=== PATIENT | female | born 1940 | race Caucasian/White ===

== ENCOUNTER → 2017-11-22 | Outpatient (CLI) | payer MEDICARE, OTHER ==
--- NOTE | 2017-11-22 10:51 | RADIOLOGY IMAGING REPORT ---
FACILITY: [facility] PATIENT NAME: Whitney Martinez : 1940 MR: [id number] V: [id number] EXAM DATE: ORDERING PHYSICIAN: RIANA ROCK TECHNOLOGIST: Location: [facility] Patient: Whitney Martinez : 1940 Visit/Account:[id number] Date of Sevice: 11/22/2017 DEXA Scan Clinical history: Postmenopausal. Comparison: DEXA scan from 10/24/2012. LUMBAR SPINE: The bone mineral density (BMD) measured from L1-L4 correlates with a Z-score of 1.7 and a T-score of -0.2 which is Normal as defined by the World Health Organization. The corresponding risk of fracture in the lumbar spine is Not increased compared with a young adult reference population. This value h as decrease by 5.6 % since the prior study. More than 5% change is considered significant. HIP: Bone mineral density (BMD) measured in the LEFT total hip region correlates with a Z-score 1.9 and a T-score of zero which is normal as defined by the World Health Organization. The corresponding risk of fracture in the hip is Not i ncreased compared to a young adult reference population. This value has decrease by 6.6 % since the p rior study. More than 5% change is considered significant. T score left femoral neck -0.6 Bone mineral density (BMD) measured in the Femoral Neck region measures 0.956 g/cm?. IMPRESSION: 1. Lumbar spine: Normal. There has been 5.6% decrease in the bone mineral density since the previou s exam. 2. Left Total Hip: Normal. There has been 6.6% decrease in the bone mineral density since the previ ous exam. 3. Femoral Neck: Bone Mineral Density is 0.956 g/cm? The next DEXA scan of this patient should include the following sites: L1-L4 and the left hip. FRAX? WHO Fracture Risk Assessment Tool link: <http://www.shef.ac.uk/FRAX/tool.jsp?locationValue=9> PLEASE NOTE: 1) The World Health Organization defines low BMD as follows: T-score Normal > -1 Osteopenia < -1 and > -2.5 Osteoporosis < -2.5 without fractures Established osteoporosis < -2.5 with fractures 2) In general, you may wish to consider: Diagnosis Treatment Follow-up DEXA Normal BMD Prevention 2-3 years Osteopenia Prevention/therapy 1-2 years Osteoporosis Therapy Yearly 3) Fracture risk estimated from the T-score is more accurate for vertebral fractures (often spontane ous) than for hip fractures. Report Dictated By: Alana Ramirez MD at 11/22/2017 10:44 AM Report E-Signed By: Alana Ramirez MD at 11/22/2017 10:46 AM WSN:[id number]
--- NOTE | 2017-11-23 08:48 | RADIOLOGY IMAGING REPORT ---
[place] [facility] [place] JONNY HUTSON : [id number] MR: [id number] V: [id number] EXAM DATE: ORDERING PHYSICIAN: RIANA ROCK TECHNOLOGIST: Tisha Hall PROCEDURE:BILATERAL DIGITAL SCREENING MAMMOGRAM WITH CAD ASSISTED INTERPRETATION COMPARISON:Prior mammograms 12/19/14, 10/24/12. INDICATIONS:SCREENING FINDINGS: Small to moderate amount of fibroglandular tissue is seen throughout the breasts. The parenchymal pattern has remained stable allowing for difference in mammographic technique & patient positioning. There is no evidence of malignant appearing mass, malignant appearing calcifications or other secondary sign of malignancy in either breast. DIAGNOSTIC CATEGORY 1--NEGATIVE. RECOMMENDATIONS: ROUTINE MAMMOGRAM AND CLINICAL EVALUATION. IMPRESSION: BIRADS 1: Negative. No significant abnormality is seen. Dictated by: Alana Ramirez M.D. on 11/22/2017 at 17:05 Transcribed by: LANE on 11/23/2017 at 7:51 Approved by: Alana Ramirez M.D. on 11/23/2017 at 8:47 [facility]
== END ==
LOC: MAMO 01:57
PROVIDERS: ATTEND Internal Medicine
DX: Z12.31 Encounter for screening mammogram for malignant neoplasm of breast (principal); Z00.00 Encounter for general adult medical examination without abnormal findings; Z80.3 Family history of malignant neoplasm of breast
CPT/HCPCS: 77063; 77067; 77080

== ENCOUNTER 2018-05-03 06:22 | Emergency (ER) | payer MEDICARE, OTHER ==
[2018-05-03] MEDS ORDERED: ASPIRIN 81 MG CHEW PO ONE (06:30)
--- NOTE | 2018-05-03 06:33 | EKG ---
FACILITY: [facility] PATIENT NAME: JONNY HUTSON : [id number] MR: [id number] V: [id number] EXAM DATE: ORDERING PHYSICIAN: ZAINAB LINDA TECHNOLOGIST: TAMIE Test Reason : CP Blood Pressure : / mmHG Vent. Rate : 093 BPM Atrial Rate : 093 BPM P-R Int : 138 ms QRS Dur : 088 ms QT Int : 360 ms P-R-T Axes : 063 061 062 degrees QTc Int : 447 ms Normal sinus rhythm Anterior infarct , age undetermined T inversion consistent with ant ischemia vs normal variant No previous ECGs available Confirmed by JEANNA ESCOBAR ([id number]) on 05/03/2018 4:26:53 PM Referred By: Confirmed By:JEANNA ESCOBAR
[2018-05-03] MEDS ORDERED: ADAL40PE (06:47)
[2018-05-03] MEDS ORDERED: LEVO50TA86 PO (06:47)
[2018-05-03 07:17] LABS: PLATELET COUNT, AUTOMATED 228 K/uL (150-450)
--- NOTE | 2018-05-03 07:27 | ER Report ---
History and Physical Time Seen By MD: 06:50 Hx. of Stated Complaint: patient states that she has some chest pain that started about and hour ago; patient states that she lost her daughter 2 months ago and maybe thinks this is stress related but she just wants to be sure HPI/ROS CHIEF COMPLAINT: Chest pain HISTORY OF PRESENT ILLNESS: 77 showed female comes in with left-sided pleuritic chest discomfort reproducible patient's had this before she's had us to stress test performed last was about a year and a half ago which was negative recently had some significant psychosocial issues her daughter 2 days ago she's had milligrams number recently she is extremely emotional and feels it may be contributory factor. Patient states that the pain comes and goes no loosening relieving factorsof stated symptoms no shortness of breath nausea vomiting diarrhea fever chills or additional complaints this is exactly how was the last time she's had patient has no cardiac history REVIEW OF SYSTEMS: Respiratory: No cough, no dyspnea. Cardiovascular: Chest pain or palpitation Gastrointestinal: No vomiting, no abdominal pain. Musculoskeletal: No back pain. Remainder of the 14 system rev: Yes Allergies: Coded Allergies: No Known Drug Allergies (Unverified , 05/03/18) Home Meds Reported Medications Adalimumab (Humira Psoriasis) 40 Mg/0.8 Ml Pen.ij.kit, 40 05/03/18 Levothyroxine Sodium (LEVOTHYROXINE SODIUM) 50 Mcg Tablet, 50 MCG PO QDAY, TAB 05/03/18 Reviewed Nurses Notes: Yes Old Medical Records Reviewed: Yes Hx Substance Use Disorder: No Constitutional Vital Sign - Last 24 Hours 05/03/18 06:27 Temp 98.3 Pulse 91 Resp 90 B/P (MAP) 187/104 Pulse Ox 97 O2 Delivery Room Air Physical Exam General Appearance: The patient is alert, has no immediate need for airway protection and no current signs of toxicity. Emotional Eyes: Pupils equal and round no injection. Respiratory: Chest is non tender, lungs are clear to auscultation. Cardiac: regular rate and rhythm [ ] Gastrointestinal: Abdomen is soft and non tender, no masses, bowel sounds normal. Musculoskeletal: Neck: Neck is supple and non tender. Extremities have full range of motion and are non tender. Skin: No rashes or lesions. [ ] DIFFERENTIAL DIAGNOSIS: After history and physical exam differential diagnosis was considered for acute PR myocardial infarction myocardial ischemia dissection pulmonary emboli anxiety Medical Decision Making Data Points Result Diagram: 05/03/18 0700 05/03/18 0700 Laboratory Hematology Test 05/03/18 07:00 Red Blood Count 4.77 M/uL (4.17-5.56) Mean Corpuscular Volume 91.1 fL (80.0-96.0) Mean Corpuscular Hemoglobin 30.6 pg (26.0-33.0) Mean Corpuscular Hemoglobin Concent 33.6 g/dL (32.0-36.0) Red Cell Distribution Width 13.2 % (11.5-14.5) Mean Platelet Volume 7.5 fL (7.2-11.1) Neutrophils (%) (Auto) 48.0 % (39.4-72.5) Lymphocytes (%) (Auto) 34.6 % (17.6-49.6) Monocytes (%) (Auto) 10.1 % (4.1-12.4) Eosinophils (%) (Auto) 5.9 % (0.4-6.7) Basophils (%) (Auto) 1.4 % (0.3-1.4) Nucleated RBC Relative Count (auto) 0.2 /100WBC Neutrophils # (Auto) 1.8 K/uL (2.0-7.4) Lymphocytes # (Auto) 1.3 K/uL (1.3-3.6) Monocytes # (Auto) 0.4 K/uL (0.3-1.0) Eosinophils # (Auto) 0.2 K/uL (0.0-0.5) Basophils # (Auto) 0.1 K/uL (0.0-0.1) Nucleated RBC Absolute Count (auto) 0.01 K/uL D-Dimer Quantitative (PE/DVT) 0.47 ug/ml (0-0.50) Sodium Level 137 mmol/L (137-145) Potassium Level 4.2 mmol/L (3.5-5.0) Chloride Level 104 mmol/L (98-107) Carbon Dioxide Level 23 mmol/L (22-31) Blood Urea Nitrogen 14 mg/dl (7-18) Creatinine 0.80 mg/dl (0.52-1.04) Glomerular Filtration Rate Calc > 60.0 Random Glucose 118 mg/dl (75-110) Calcium Level 10.0 mg/dl (8.4-10.2) Total Bilirubin 0.5 mg/dl (0.2-1.3) Aspartate Amino Transf (AST/SGOT) 24 U/L (0-35) Alanine Aminotransferase (ALT/SGPT) 23 U/L (0-56) Alkaline Phosphatase 70 U/L (0-126) Troponin I < 0.012 ng/ml B-Type Natriuretic Peptide 15 pg/ml (0-100) Total Protein 7.8 g/dl (6.3-8.2) Albumin 4.7 g/dl (3.5-5.0) Chemistry Test 05/03/18 07:00 White Blood Count 3.7 k/uL (4.5-11.0) Red Blood Count 4.77 M/uL (4.17-5.56) Hemoglobin 14.6 g/dL (12.0-16.0) Hematocrit 43.5 % (34.0-47.0) Mean Corpuscular Volume 91.1 fL (80.0-96.0) Mean Corpuscular Hemoglobin 30.6 pg (26.0-33.0) Mean Corpuscular Hemoglobin Concent 33.6 g/dL (32.0-36.0) Red Cell Distribution Width 13.2 % (11.5-14.5) Platelet Count 228 K/uL (150-450) Mean Platelet Volume 7.5 fL (7.2-11.1) Neutrophils (%) (Auto) 48.0 % (39.4-72.5) Lymphocytes (%) (Auto) 34.6 % (17.6-49.6) Monocytes (%) (Auto) 10.1 % (4.1-12.4) Eosinophils (%) (Auto) 5.9 % (0.4-6.7) Basophils (%) (Auto) 1.4 % (0.3-1.4) Nucleated RBC Relative Count (auto) 0.2 /100WBC Neutrophils # (Auto) 1.8 K/uL (2.0-7.4) Lymphocytes # (Auto) 1.3 K/uL (1.3-3.6) Monocytes # (Auto) 0.4 K/uL (0.3-1.0) Eosinophils # (Auto) 0.2 K/uL (0.0-0.5) Basophils # (Auto) 0.1 K/uL (0.0-0.1) Nucleated RBC Absolute Count (auto) 0.01 K/uL D-Dimer Quantitative (PE/DVT) 0.47 ug/ml (0-0.50) Glomerular Filtration Rate Calc > 60.0 Calcium Level 10.0 mg/dl (8.4-10.2) Total Bilirubin 0.5 mg/dl (0.2-1.3) Aspartate Amino Transf (AST/SGOT) 24 U/L (0-35) Alanine Aminotransferase (ALT/SGPT) 23 U/L (0-56) Alkaline Phosphatase 70 U/L (0-126) Troponin I < 0.012 ng/ml B-Type Natriuretic Peptide 15 pg/ml (0-100) Total Protein 7.8 g/dl (6.3-8.2) Albumin 4.7 g/dl (3.5-5.0) Coagulation Test 05/03/18 07:00 D-Dimer Quantitative (PE/DVT) 0.47 ug/ml ED Course/Re-evaluation ED Course 77 year female comes in with muscle skeletal left anterior chest wall pain reproducible negative EKG negative cardiac enzyme negative chest x-ray 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 she had a negative stress test 18 months ago she wants to leave to be with her family this is reasonable to return if symptoms worsen diagnosis would be aty pical chest pain Decision to Disposition Date: May 03, 2018 Decision to Disposition Time: 09:11 Depart Departure Latest Vital Signs Vital Signs Date Time Temp Pulse Resp B/P (MAP) Pulse Ox O2 Delivery O2 Flow Rate FiO2 05/03/18 06:27 98.3 91 90 187/104 97 Room Air Impression: Primary Impression: Atypical chest pain Additional Impression: Grief reaction Condition: Improved Disposition: HOME OR SELF-CARE Referrals: EMERITA SHEFFIELD MD 5 Days Patient Instructions: Chest Pain (DC) Problem Qualifiers MONICA WASSERMAN MD May 03, 2018 07:27
--- NOTE | 2018-05-03 07:57 | RADIOLOGY IMAGING REPORT ---
[place] [facility] [place] : 1940 MR: [id number] V: [id number] EXAM DATE: ORDERING PHYSICIAN: MONICA WASSERMAN TECHNOLOGIST: Location: [facility] Patient: Whitney Martinez : 1940 Visit/Account:[id number] Date of Sevice: 05/03/2018 CHEST PA LAT HISTORY: Left-sided chest tightness. Low blood pressure since last night with associated shortness of breath. COMPARISON: None. TECHNIQUE: PA and lateral views of the chest. FINDINGS: Pulmonary/pleura: There is hyperinflation. The lungs are clear. There is no pneumothorax or pleural e ffusion. Cardiomediastinal: Cardiac and mediastinal silhouettes are within normal limits. Bones/soft tissues: No acute osseous abnormality. There is mild to moderate degenerative change of th e mid to lower thoracic spine. There is a slight leftward curvature of the lower thoracic spine. The visible abdomen is normal. IMPRESSION: 1. Hyperinflation without acute cardiopulmonary process. Report Dictated By: Dahiana Miller at 05/03/2018 7:51 AM Report E-Signed By: Dahiana Miller at 05/03/2018 7:53 AM WSN:[id number]
[2018-05-03 09:14] VITALS: BP 108/86
== END 2018-05-03 09:20 | disposition home or self-care (01) ==
LOC: ER 07:20
DX: R07.89 Other chest pain (principal); F43.20 Adjustment disorder, unspecified
CPT/HCPCS: 71046; 83880; 84484; 85025; 85379; 93005; 99284; A9270; 82040; 82247; 82310; 82374; 82435; 82565; 82947; 84075; 84132; 84155; 84295; 84450; 84460; 84520